=== PATIENT | male | born 1985 | race Caucasian/White ===

== ENCOUNTER 2017-08-09 14:11 | Emergency (ER) | payer BC ==
[2017-08-09 14:32] VITALS: RESP 16
[2017-08-09 15:59] LABS: Basophils % (A) 1 %; Eosinophils # (A) 0.1 k/uL (0-0.7); Eosinophils % (A) 2 %; HCT 45.3 % (39.0-53.0); HGB 15.3 gm/dL (13.0-17.5); Lymphocytes # (A) 2.4 k/uL (1.0-4.8); Lymphocytes % (A) 41 %; MCH 31.9 pg (25.0-35.0); MCHC 33.8 g/dL (31.0-37.0); MCV 94.4 fL (80.0-100.0); Mean Platelet Volume 7.1; Monocytes # (A) 0.4 k/uL (0-1.0); Monocytes % (A) 7 %; Neutrophils # (A) 2.8 k/uL (1.3-7.7); Neutrophils % (A) 47 %; Platelet Count 247 k/uL (150-450); RDW 12.1 % (11.5-15.5); WBC 5.9 k/uL (3.8-10.6)
[2017-08-09 16:05] LABS: INR 1.1 (<1.2); Partial Thromboplastin Time 25.5 sec (22.0-30.0); Prothrombin Time 10.4 sec (9.0-12.0)
[2017-08-09 16:08] LABS: ALT 27 U/L (21-72); AST 24 U/L (17-59); Albumin 4.5 g/dL (3.5-5.0); Alkaline Phosphatase 46 U/L (38-126); Anion Gap 9 mmol/L; Blood Urea Nitrogen 16 mg/dL (9-20); Calcium 9.6 mg/dL (8.4-10.2); Carbon Dioxide 31 mmol/L (22-30); Chloride 102 mmol/L (98-107); Glucose 82 mg/dL (74-99); Potassium 4.6 mmol/L (3.5-5.1); Sodium 142 mmol/L (137-145); Total Bilirubin 0.7 mg/dL (0.2-1.3); Total Protein 7.2 g/dL (6.3-8.2)
[2017-08-09 16:26] LABS: Creatine Kinase 82 U/L (55-170)
[2017-08-09 16:36] LABS: Creatine Kinase MB 0.6 ng/mL (0.0-2.4); Troponin I <0.012 ng/mL (0.000-0.034)
[2017-08-09] MEDS ORDERED: predniSONE 50 MG TAB PO STA (16:57)
[2017-08-09] MEDS ORDERED: ALBUTEROL NEBULIZED 2.5 MG/3 ML INHALATION STA (16:57)
--- NOTE | 2017-08-09 17:03 | ED ---
Chest Pain HPI - General Chief Complaint: Chest Pain Stated Complaint: Chest Pain Time Seen by Provider: 08/09/17 16:34 Source: patient Mode of arrival: wheelchair Limitations: no limitations - History of Present Illness Initial Comments: Patient is a 32-year-old male presents with a chief complaint of pleuritic type chest pain. This going on for a little over a week. The patient cannot identify an inciting incident. Patient states that aggravating factors include deep breathing and exertion. There are no alleviating factors. Timing is constant. Vision has been seen by primary care and was given 5 days of azithromycin. His symptoms have not resolved since. Patient denies any past medical history, or significant family history. - Related Data Previous Rx's Medication Instructions Recorded predniSONE 50 mg PO DAILY 5 Days #5 tab 08/09/17 Allergies Allergy/AdvReac Type Severity Reaction Status Date / Time No Known Allergies Allergy Verified 08/09/17 17:37 Review of Systems ROS Statement: Those systems with pertinent positive or pertinent negative responses have been documented in the HPI. ROS Other: All systems not noted in ROS Statement are negative. Respiratory: Reports: dyspnea Past Medical History Past Medical History: No Reported History History of Any Multi-Drug Resistant Organisms: None Reported Past Surgical History: No Surgical Hx Reported Past Psychological History: No Psychological Hx Reported Smoking Status: Former smoker Past Alcohol Use History: Occasional Past Drug Use History: None Reported General Exam Limitations: no limitations General appearance: alert, in no apparent distress Head exam: Present: atraumatic, normocephalic Eye exam: Present: normal appearance ENT exam: Present: normal exam Neck exam: Present: normal inspection Respiratory exam: Present: normal lung sounds bilaterally. Absent: respiratory distress, wheezes Cardiovascular Exam: Present: regular rate, normal rhythm GI/Abdominal exam: Present: soft. Absent: distended, tenderness Rectal exam: Present: deferred Extremities exam: Present: normal inspection Back exam: Present: normal inspection Neurological exam: Present: alert, oriented X3 Psychiatric exam: Present: normal affect, normal mood Skin exam: Present: warm, dry, intact Course Vital Signs 08/09/17 08/09/17 08/09/17 14:29 16:45 17:28 Temperature 98.1 F Pulse Rate 63 58 L Pulse Rate [ 54 L Bilateral Cuff Stitcher ] Respiratory 16 Rate Blood Pressure 113/63 O2 Sat by Pulse 100 Oximetry 08/09/17 17:45 Temperature Pulse Rate 58 L Pulse Rate [ Bilateral Cuff Stitcher ] Respiratory Rate Blood Pressure O2 Sat by Pulse Oximetry Chest Pain MDM - MDM Patient presents with a chief complaint of pleuritic-type chest pain. On initial evaluation, vitals are stable, patient is in no acute distress. EKG performed at 1536 shows sinus bradycardia with a rate of 55 bpm. EKG is otherwise unremarkable. Patient be evaluated with basic labs and cardiac workup. D-dimer was added on. Patient given albuterol and prednisone in the emergency department. History and physical examination are most consistent with pleurisy, though PE and MS were considered. 6:55 PM Lab evaluation this patient is unremarkable. D-dimer is negative making PE again, very unlikely. Chest x-ray shows no acute process. Cardiac enzymes are negative. At this time, patient will be treated with prednisone for 5 days for pleurisy. Patient was instructed to follow up with primary care in 1-2 days for further testing, return to the emergency department if symptoms worsen or change. Disposition Clinical Impression: Pleurisy Disposition: HOME SELF-CARE Condition: Good Instructions: Chest Pain (ED) Prescriptions: predniSONE 50 mg PO DAILY 5 Days #5 tab Is patient prescribed a controlled substance at d/c from ED?: No Referrals: Filomena Hickman [facility] [REFERRING] - 1-2 days
[2017-08-09 17:26] LABS: VBG PH 7.33 (7.31-7.41)
--- NOTE | 2017-08-09 18:21 | XR ---
EXAMINATION TYPE: XR chest 2V DATE OF EXAM: 08/09/2017 COMPARISON: NONE HISTORY: Chest pain TECHNIQUE: Frontal and lateral views of the chest are obtained. FINDINGS: Heart and mediastinum are normal. Lungs are clear. Diaphragm is normal. There are chest le ads. IMPRESSION: Normal chest
[2017-08-09 19:28] VITALS: BP 116/78; PULSE 61; TEMP 98.6
== END 2017-08-09 19:25 | disposition home or self-care (01) ==
LOC: EC 14:11
DX: R09.1 Pleurisy (principal); R00.1 Bradycardia, unspecified; Z87.891 Personal history of nicotine dependence
CPT/HCPCS: 36415; 94640; 93005; 85379; 80053; 82550; 82553; 82803; 84484; 85025; 85610; 85730; 71046; 99285; J7512

== ENCOUNTER → 2020-01-17 | Outpatient (CLI) | payer BC ==
--- NOTE | 2020-01-18 05:35 | US ---
EXAMINATION TYPE: US scrotum with doppler. DATE OF EXAM: 01/17/2020 COMPARISON: None CLINICAL HISTORY: 34-year-old male N50.8 PAIN SCROTUM/TESTES. Left side pain. Hx vasectomy x 4 years ago. Hx varicoceles on left side with varicocele removal. TECHNIQUE: Grayscale and color Doppler Duplex imaging performed of the scrotum. FINDINGS: EXAM MEASUREMENTS: TESTICLES: Right Testicle: 4.5 x 3.7 x 2.6 cm Left Testicle: 4.0 x 4.5 x 2.2 cm EPIDIDYMIS HEAD: Right Epididymis: 1.0 x 1.4 x 0.7 cm Left Epididymis: 1.1 x 1.4 x 0.8 cm Doppler performed to assess for testicular vascularity; good bilateral color flow and waveforms are s een. There is no evidence of testicular torsion. Presence of hydroceles: no Presence of varicoceles: Left IMPRESSION: 1. No sonographic evidence for testicular torsion. 2. Residual or recurrent left-sided varicocele.
== END | disposition home or self-care (01) ==
LOC: RADUSWWP 15:46
PROVIDERS: ATTEND Urology
DX: N50.82 Scrotal pain (principal); N50.812 Left testicular pain
CPT/HCPCS: 76870; 93975